=== PATIENT | female | born 1945 | race Caucasian/White ===

== ENCOUNTER 2016-10-13 23:34 | Emergency (ER) | payer MEDICARE, BC ==
[~2016-10-13 23:34] MED LIST: ASA5GR PO; ASAB PO; BIST PO; CALTRA600D PO; CATAPLEX B PO; CELEXA40 MG PO; CENTRUM PO; COREG6 PO; CYMBALTA; CYMBALTA60 PO; ENDOCET1 TA3 PO; FLEXI JOIN1 PO; KLONO1 PO; KLONO5 PO; LEVOTHYROXIN75 MCG PO; LEXAPRO20 PO; MEDROLPAK4 PO; MEVACOR40 MG PO; MOBIC15 MG PO; NOLV10 PO; OXYCOD PO; PERCOCET1 TA4 PO; PRILO PO; PROTONIX PO; SIN25 PO; SYN075 PO; V5 PO; VITD PO; VITS/HERBS/SUPPLEMEN; ZANAFLEX2 MG PO; [UNRECOGNIZED DRUG - OTHER] PO
[2016-10-14 00:16] LABS: BASOPHILS 0.3 %; BASOPHILS ABSOLUTE 0.02 10/3/uL (0.0-0.16); EOSINOPHILS 2.3 %; EOSINOPHILS ABSOLUTE 0.18 10/3/uL (0.0-0.53); ER CBC TAT 0 Hrs 13 Mins; IMMATURE GRANULOCYTES 0.1 %; IMMATURE GRANULOCYTES ABSOLUTE 0.01 10/3/uL (0.0-0.11); LYMPHOCYTES 28.1 %; LYMPHOCYTES ABSOLUTE 2.18 10/3/uL (0.67-4.30); MEAN CORPUSCULAR HEMOGLOB 29.2 pg (26.0-34.0); MEAN PLATELET VOLUME 10.1 fL (9.2-13.0); MONOCYTES 6.8 %; MONOCYTES ABSOLUTE 0.53 10/3/uL (0.21-1.20); NEUTROPHILS 62.4 %; NEUTROPHILS ABSOLUTE 4.83 10/3/uL (2.02-8.40); RED CELL COUNT 3.66 10/6/uL (4.0-5.6); WHITE BLOOD CELLS 7.8 10/3/uL (4.5-10.5)
[2016-10-14 00:19] LABS: HEMATOCRIT 33.6 % (36.0-48.0); HEMOGLOBIN 10.7 g/dL (12.0-16.0); MANUAL DIFF NO %; MEAN CORPUS HGB CONC 31.8 g/dL (32.0-36.0); MEAN CORPUSCULAR VOLUME 91.8 fL (80-100); PLATELET COUNT 267 10/3/uL (150-400)
[2016-10-14 00:24] LABS: PARTIAL THROMBO TIME 25.4 SEC (22.5-37.2)
[2016-10-14 00:28] LABS: CHEST PAIN PROFILE TAT 0 Hrs 25 Mins; CHLORIDE, SERUM 101 MMOL/L (96-112); CO2 (CARBON DIOXIDE) 29 MMOL/L (24-34); CREATININE 0.76 MG/DL (0.55-1.02); GFR AFRICAN AMERICAN 91 ML/MIN (>=60); GFR NON AFRICAN AMERICAN 79 ML/MIN (>=60); GLUCOSE, SERUM 133 MG/DL (60-99); POTASSIUM, SERUM 4.1 MMOL/L (3.5-5.3); SODIUM, SERUM 140 MMOL/L (135-148); TROPONIN I <0.02 NG/ML (<0.05)
[2016-10-14 00:29] LABS: BUN (BLOOD UREA NITROGEN) 13 MG/DL (6-23); CALCIUM, SERUM 8.5 MG/DL (8.5-10.4)
[2016-10-14 00:30] LABS: PROTIME (NOT ORD) 13.4 SEC (12.0-14.5)
[2016-10-14 01:13] LABS: ASCORBIC ACID (UR NOT ORDER) NEG (NEG); BILIRUBIN, URINE NEGATIVE (NEG); ER URINALYSIS TAT 0 Hrs 00 Mins; KETONE, URINE NEGATIVE (NEG); LEUKOCYTE ESTERASE(NOT OR NEG (NEG); NITRITE (URINE) NEG (NEG); WBC (NOT ORDERED) (RFLEX) 1 (0-5)
== END 2016-10-14 01:34 | disposition home or self-care (01) ==
LOC: ER 23:34
PROVIDERS: Nurse Practitioner Acute Care
DX: S30.0XXA Contusion of lower back and pelvis, initial encounter (principal); I10 Essential (primary) hypertension; G20 Parkinson's disease; F41.9 Anxiety disorder, unspecified; Z85.3 Personal history of malignant neoplasm of breast; E11.9 Type 2 diabetes mellitus without complications; F32.9 Major depressive disorder, single episode, unspecified; Z88.8 Allergy status to other drugs, medicaments and biological substances; Z79.899 Other long term (current) drug therapy; Z88.5 Allergy status to narcotic agent; W19.XXXA Unspecified fall, initial encounter
CPT/HCPCS: 70450; 72125; 72220; 80048; 81001; 83735; 84484; 85025; 85610; 85730; 99284; A9270-GY